=== PATIENT | female | born 1965 | race Caucasian/White ===

== ENCOUNTER 2017-05-10 15:39 | Emergency (ER) | payer OTHER ==
[~2017-05-10] VITALS: Ht 165.1 cm; Wt 93.7 kg
[2017-05-10 15:47] VITALS: BP 162/92
--- NOTE | 2017-05-10 15:53 | NUR ---
PT AMBUALTES TO BED 4
--- NOTE | 2017-05-10 15:54 | NUR ---
DR PINO EVALUATING AAO AT BEDSIDE
--- NOTE | 2017-05-10 16:05 | NUR ---
PATIENT PRESENTS TO ED WITH C/O RASH ALL OVER HER BODY AFTER COMING HOME FROM WORK; TOOK BENADRYL 30 MINUTES PRIOR TO ARIVAL WITH NO RELIEF; DENIES SOB HX; DENIES RX; DENIES SKIN IS PINK/WARM/DRY; AAOX4 WITH EVEN AND STEADY GAIT; LUNGS CLEAR BL; HR EVEN AND REGULAR; PT DENIES ANY FEVER, CP, SOB, OR COUGH AT THIS TIME; PATIENT STATES PAIN OF 0/10 AT THIS TIME; PATIENT POSITIONED FOR COMFORT; HOB ELEVATED; BEDRAILS UP X2; BED DOWN. NOTED DRY RASH ALL OVER THE BODY, ENCOURAGED NOT TO ITCH AND PT AGREED WITH IT.
[2017-05-10 16:17] VITALS: BP 135/98
== END 2017-05-10 16:18 | disposition home or self-care (01) ==
LOC: MED 15:39
DX: R21 Rash and other nonspecific skin eruption (principal); Z90.710 Acquired absence of both cervix and uterus; F17.200 Nicotine dependence, unspecified, uncomplicated
CPT/HCPCS: 99283

== ENCOUNTER 2021-11-23 15:35 | Emergency (ER) | payer BC, OTHER ==
[~2021-11-23] VITALS: Ht 165.1 cm; Wt 90.7 kg
[2021-11-23 15:47] VITALS: BP 158/94
[2021-11-23] MEDS ORDERED: DEXAMETHASONE 10 MG/ML VIAL IVP ONE (16:35)
[2021-11-23] MEDS ORDERED: NACL 0.9% 500 ML IV ONE (16:35)
[2021-11-23] MEDS ORDERED: diphenhydrAMINE 50 MG/ML VIAL IVP ONE (16:35)
[2021-11-23] MEDS ORDERED: FAMOTIDINE 20 MG TAB PO ONE (16:35)
--- NOTE | 2021-11-23 17:10 | NUR ---
56 y/o female bib self, c/o rash/hives generalized on body that started today after eating a specific candy 2 hours prior to arrival. pt states that she took 2 Benadryl's unknown medication dosing. denies nausea, vomiting, diarrhea. a&o x4 with even and steady gait. lungs clear bl, heart rate even and regular. pt denies any fever, cp, sob, or cough at this time. pt states pain is 0/10 at this time, states she has itching. vss. patient positioned for comfort. hob elevated. bed down. ermd made aware of pt. pmh: denies allergy: nuts, wheat med: benadryl
[2021-11-23] MEDS ORDERED: EPIN1KIT31 IM (18:27)
[2021-11-23] MEDS ORDERED: DIPH25TA53 PO (18:27)
[2021-11-23] MEDS ORDERED: PRED20TA5 PO (18:27)
[2021-11-23] MEDS ORDERED: LORA10SG1 PO (18:27)
[2021-11-23 18:38] VITALS: BP 158/94
--- NOTE | 2021-11-23 18:38 | NUR ---
Patient discharged with v/s stable. Written and verbal after care instructions given and explained. Patient alert, oriented and verbalized understanding of instructions. Ambulatory with steady gait. All questions addressed prior to discharge. ID band removed. Patient advised to follow up with PMD. Rx of epipen, benadryl, claritin, deltasone (sent) given. Patient educated on indication of medication including possible reaction and side effects. Opportunity to ask questions provided and answered. work note given
== END 2021-11-23 18:38 | disposition home or self-care (01) ==
LOC: MED 15:35
DX: R21 Rash and other nonspecific skin eruption (principal); L50.9 Urticaria, unspecified
CPT/HCPCS: 96361; 96374; 96375; 99284; J1100; J1200; J7030

== ENCOUNTER 2022-02-24 14:52 | Emergency (ER) | payer BC ==
[~2022-02-24] VITALS: Ht 165.1 cm; Wt 89.8 kg
[~2022-02-24 14:52] MED LIST: DIPH25TA53 PO; EPIN1KIT31 IM; LORA10SG1 PO; PRED20TA5 PO
[2022-02-24 14:59] VITALS: BP 164/94
[2022-02-24] MEDS ORDERED: LORA-1447 PO (16:48)
[2022-02-24] MEDS ORDERED: BEN50 PO (16:48)
[2022-02-24] MEDS ORDERED: PRED20TA5 PO (16:48)
[2022-02-24] MEDS ORDERED: FAMOTIDINE 20 MG TAB PO ONE (16:55)
[2022-02-24] MEDS ORDERED: predniSONE 20 MG TAB PO ONE (16:55)
--- NOTE | 2022-02-24 17:42 | NUR ---
Patient discharged with v/s stable. Written and verbal after care instructions given and explained. Patient alert, oriented and verbalized understanding of instructions. Ambulatory with steady gait. All questions addressed prior to discharge. ID band removed. Patient advised to follow up with PMD. Rx of BENADRYL, PREDNISONE AND LORATADINE given. Patient educated on indication of medication including possible reaction and side effects. Opportunity to ask questions provided and answered.
== END 2022-02-24 17:42 | disposition home or self-care (01) ==
LOC: MED 14:52
DX: L29.9 Pruritus, unspecified (principal); T78.1XXA Other adverse food reactions, not elsewhere classified, initial encounter; X58.XXXA Exposure to other specified factors, initial encounter
CPT/HCPCS: 99283; J7512